=== PATIENT | female | born 1965 | race Caucasian/White ===

== ENCOUNTER 2023-12-31 16:21 | Emergency (ER) | payer MEDICAID ==
[~2023-12-31] VITALS: Ht 152.4 cm; Wt 61.0 kg
[2023-12-31 16:54] VITALS: O2SAT 97
[2023-12-31] MEDS ORDERED: CARB100C9 MT (19:21)
[2023-12-31 19:40] VITALS: BP 130/76; PULSE 70; RESP 18; TEMP 36.61404; O2SAT 100
== END 2023-12-31 19:40 | disposition home or self-care (01) ==
LOC: ER 16:21
DX: G50.0 Trigeminal neuralgia (principal); I10 Essential (primary) hypertension
CPT/HCPCS: 99283